=== PATIENT | female | born 1960 | race Caucasian/White ===

== ENCOUNTER → 2016-07-18 | Outpatient (CLI) | payer OTHER ==
[2016-07-18 08:22] LABS: CHLORIDE,CL 111 mmol/L (98-110); SODIUM,NA 142 mmol/L (136-146)
--- NOTE | 2016-07-24 17:36 | MY ---
EXAMINATION: Bilateral digital mammography utilizing CAD. HISTORY: Screening exam. Comparison is made to previous studies dated 07/16/2014. FINDINGS: Bilateral scattered fibroglandular densities. No suspicious calcifications, masses or ar chitectural distortions. No pathologic appearing lymph nodes, no abnormal skin thickening or nippl e inversion. CAD highlighted regions appear normal at this time. IMPRESSION: BI-RADS category I - negative mammogram. Continued screening according to ACR-ACS gu idelines suggested. THE FALSE-NEGATIVE RATE OF MAMMOGRAM IS APPROXIMATELY 10%. MANAGEMENT OF A PALPABLE ABNORMALITY MUST BE BASED UPON CLINICAL GROUNDS. SENSITIVITY FOR DETECTION OF ABNORMALITIES IN DENSE BREASTS IS LOW. NOTE: A letter will be sent to the patient regarding findings. [facility] -- ISSAC Jimenez [phone] - FAX [phone]
== END ==
LOC: MW.MAM 07:41
PROVIDERS: ATTEND Nurse Practitioner Women's Health
DX: Z12.31 Encounter for screening mammogram for malignant neoplasm of breast (principal); I10 Essential (primary) hypertension
CPT/HCPCS: 36415; 80053; 80061; 81001; 84443; G0202

== ENCOUNTER 2017-03-13 14:16 | Emergency (ER) | payer OTHER ==
[2017-03-13] MEDS ORDERED: Pantoprazole 40 MG Vial IVPUSH ONE (14:40)
[2017-03-13] MEDS ORDERED: Sodium Chloride 0.9% 1,000 ML IV ONE (14:40)
[2017-03-13] MEDS ORDERED: Sodium Chloride 0.9% 2.5 ML Syringe FLUSH PRN (14:40)
[2017-03-13] MEDS ORDERED: Sodium Chloride 0.9% 10 ML Syringe FLUSH PRN (14:40)
[2017-03-13] MEDS ORDERED: Metoclopramide 10 MG/2 ML SDV IV ONE (14:41)
--- NOTE | 2017-03-13 14:43 | EDM.PDOC ---
ED HPI GENERAL MEDICAL PROBLEM - General Chief Complaint: Gastrointestinal Problem Stated Complaint: POSSIBLE ULCER/UNABLE TO EAT Time Seen by Provider: 03/13/17 14:37 - History of Present Illness INITIAL COMMENTS - FREE TEXT/NARRATIVE: HISTORY AND PHYSICAL: History of present illness: Patient's a 56-year-old white female history gastric bypass and ulcer disease presents with cervical epigastric discomfort is on diclofenac for her chronic knee pain she also on antihypertensive and antidepressant she denies melena hematochezia denies nausea vomiting chest pain or shortness of breath Review of systems: As per history of present illness and below otherwise all systems reviewed and negative. Past medical history: As per history of present illness and as reviewed below otherwise noncontributory. Surgical history: As per history of present illness and as reviewed below otherwise noncontributory. Social history: No reported history of drug or alcohol abuse. Family history: As per history of present illness and as reviewed below otherwise noncontributory. Physical exam: HEENT: Atraumatic, normocephalic, pupils reactive, negative for conjunctival pallor or scleral icterus, mucous membranes moist, throat clear, neck supple, nontender, trachea midline. Lungs: Clear to auscultation, breath sounds equal bilaterally, chest nontender. Heart: S1S2, regular, negative for clicks, rubs, or JVD. Abdomen: Soft, nondistended, no localized tenderness. Negative for masses or hepatosplenomegaly. Negative for costovertebral tenderness. Pelvis: Stable nontender. Genitourinary: Deferred. Rectal: Deferred. Extremities: Atraumatic, negative for cords or calf pain. Neurovascular unremarkable. Neuro: Awake, alert, oriented. Cranial nerves II through XII unremarkable. Cerebellum unremarkable. Motor and sensory unremarkable throughout. Exam nonfocal. Diagnostics: CBC CMP amylase lipase UA urine drug screen amylase lipase chest x-ray EKG CT abdomen and pelvis with IV contrast Therapeutics: Normal saline 1 L bolus Protonix 80 mg IV bolus followed by a milligram per hour drip Reglan 10 mg IV Impression: #1 epigastric abdominal pain #2 history of gastric bypass #3 history of peptic ulcer disease Definitive disposition and diagnosis as appropriate pending reevaluation and review of above. - Related Data Allergies Allergy/AdvReac Type Severity Reaction Status Date / Time No Known Allergies Allergy Verified 03/13/17 14:35 Home Meds: Home Meds Citalopram [Celexa] 20 mg PO DAILY 03/13/17 [History] Diclofenac Sodium [Voltaren] 75 mg PO BID 03/13/17 [History] Metoprolol Succinate 200 mg PO DAILY 03/13/17 [History] Past Medical History Cardiovascular History: Reports: Hypertension Gastrointestinal History: Reports: Other (See Below) Other Gastrointestinal History: bleeding ulcers Musculoskeletal History: Reports: Other (See Below) Other Musculoskeletal History: knee pain Psychiatric History: Reports: Anxiety - Past Surgical History GI Surgical History: Reports: Bariatric Procedure Social & Family History - Family History Family Medical History: Noncontributory - Tobacco Use Smoking Status *Q: Never Smoker Second Hand Smoke Exposure: No - Alcohol Use Days Per Week of Alcohol Use: 7 Number of Drinks Per Day: 6 Total Drinks Per Week: 42 - Recreational Drug Use Recreational Drug Use: No ED ROS GENERAL - Review of Systems Review Of Systems: ROS reveals no pertinent complaints other than HPI. ED EXAM, GENERAL - Physical Exam Exam: See Below (See dictated) Course - Vital Signs Text/Narrative:: Gen. surgery was consult evaluation of patient in ED and will see patient as outpatient request Protonix B prescribed 40 mg daily bland diet push fluids return as needed as discussed Last Recorded V/S: Last Vital Signs Temp 36.3 C 03/13/17 14:30 Pulse 81 03/13/17 14:30 Resp 22 H 03/13/17 14:30 BP 141/104 H 03/13/17 14:30 Pulse Ox 99 03/13/17 14:30 - Orders/Labs/Meds Orders: Active Orders 24 hr Category Date Time Status EKG Documentation Completion [RC] STAT Care 03/13/17 14:40 Active Pulse Oximetry [RC] ASDIRECTED Care 03/13/17 14:40 Active Abdomen Pelvis w Cont [CT] Stat Exams 03/13/17 14:40 Ordered Chest 1V Frontal [CR] Stat Exams 03/13/17 14:40 Ordered DRUG SCREEN, URINE [URCHEM] Stat Lab 03/13/17 14:40 Uncollected UA W/MICROSCOPIC [URIN] Stat Lab 03/13/17 14:40 Uncollected Pantoprazole [ProTONIX IV] 80 mg Med 03/13/17 14:45 Active Sodium Chloride 0.9% [Normal Saline] 100 ml IV .Continuous Sodium Chloride 0.9% [Saline Flush] Med 03/13/17 14:40 Active 10 ml FLUSH ASDIRECTED PRN Sodium Chloride 0.9% [Saline Flush] Med 03/13/17 14:40 Active 2.5 ml FLUSH ASDIRECTED PRN Saline Lock Insert [OM.PC] Stat Oth 03/13/17 14:40 Ordered Medication Orders Pantoprazole Sodium 80 mg/ (Sodium Chloride) 100 mls @ 10 mls/hr IV .Continuous DARSHAN Sodium Chloride (Saline Flush) 10 ml FLUSH ASDIRECTED PRN PRN Reason: Keep Vein Open Sodium Chloride (Saline Flush) 2.5 ml FLUSH ASDIRECTED PRN PRN Reason: Keep Vein Open Labs: Laboratory Tests 03/13/17 03/13/17 03/13/17 Range/Units 14:35 14:35 14:35 WBC 8.41 (4.0-11.0) K/uL RBC 4.64 (4.30-5.90) M/uL Hgb 12.8 (12.0-16.0) g/dL Hct 38.9 (36.0-46.0) % MCV 83.8 (80.0-98.0) fL MCH 27.6 (27.0-32.0) pg MCHC 32.9 (31.0-37.0) g/dL RDW Std Deviation 52.6 (28.0-62.0) fl RDW Coeff of Agbby 17 H (11.0-15.0) % Plt Count 282 (150-400) K/uL MPV 11.30 (7.40-12.00) fL Neut % (Auto) 61.1 (48.0-80.0) % Lymph % (Auto) 25.7 (16.0-40.0) % [place] % (Auto) 11.7 (0.0-15.0) % Eos % (Auto) 1.1 (0.0-7.0) % Baso % (Auto) 0.4 (0.0-1.5) % Neut # (Auto) 5.2 (1.4-5.7) K/uL Lymph # (Auto) 2.2 (0.6-2.4) K/uL [place] # (Auto) 1.0 H (0.0-0.8) K/uL Eos # (Auto) 0.1 (0.0-0.7) K/uL Baso # (Auto) 0.0 (0.0-0.1) K/uL Nucleated RBC % 0.4 /100WBC Nucleated RBCs # 0 K/uL INR 1.00 (0.86-1.11) Sodium 140 (136-146) mmol/L Potassium 4.2 (3.5-5.1) mmol/L Chloride 108 (98-110) mmol/L Carbon Dioxide 21 (21-31) mmol/L BUN 8 (6.0-23.0) mg/dL Creatinine 0.7 (0.6-1.5) mg/dL Est Cr Clr Drug Dosing 86.23 mL/min Estimated GFR (MDRD) > 60.0 ml/min Glucose 113 H (60-110) mg/dL Calcium 10.1 (8.8-10.8) mg/dL Total Bilirubin 0.4 (0.1-1.5) mg/dL AST 24 (5-40) IU/L ALT 17 (8-54) IU/L Alkaline Phosphatase 80 (40-150) Total Protein 7.4 (6.0-8.0) g/dL Albumin 4.2 (3.5-5.0) g/dL Globulin 3.2 (2.0-3.5) g/dL Albumin/Globulin Ratio 1.3 (1.3-2.8) Amylase 27 (10-90) U/L Lipase 67 (7-80) U/L Meds: Medications Generic Name Dose Route Start Last Admin Trade Name Freq PRN Reason Stop Dose Admin Pantoprazole Sodium 80 mg/ 100 mls @ 10 mls/hr 03/13/17 14:45 Sodium Chloride IV .Continuous DARSHAN Sodium Chloride 10 ml 03/13/17 14:40 Saline Flush FLUSH ASDIRECTED PRN Keep Vein Open Sodium Chloride 2.5 ml 03/13/17 14:40 Saline Flush FLUSH ASDIRECTED PRN Keep Vein Open Discontinued Medications Generic Name Dose Route Start Last Admin Trade Name Freq PRN Reason Stop Dose Admin Sodium Chloride 1,000 mls @ 999 mls/hr 03/13/17 14:40 03/13/17 15:07 Normal Saline IV 03/13/17 15:40 999 mls/hr STAT ONE Administration Metoclopramide HCl 10 mg 03/13/17 14:41 03/13/17 15:06 Reglan IV 03/13/17 14:42 10 mg ONETIME ONE Administration Pantoprazole Sodium 80 mg 03/13/17 14:40 03/13/17 15:01 Protonix Iv IVPUSH 03/13/17 14:41 80 mg .BOLUS ONE Administration Departure - Departure Time of Disposition: 16:13 Disposition: Home, Self-Care 01 Condition: Good Clinical Impression: Abdominal pain - Discharge Information Referrals: PCP,None [Primary Care Provider] - Forms: ED Department Discharge Additional Instructions: The following information is given to patients seen in the emergency department who are being discharged to home. This information is to outline your options for follow-up care. We provide all patients seen in our emergency department with a follow-up referral. The need for follow-up, as well as the timing and circumstances, are variable depending upon the specifics of your emergency department visit. If you don't have a primary care physician on staff, we will provide you with a referral. We always advise you to contact your personal physician following an emergency department visit to inform them of the circumstance of the visit and for follow-up with them and/or the need for any referrals to a consulting specialist. The emergency department will also refer you to a specialist when appropriate. This referral assures that you have the opportunity for followup care with a specialist. All of these measure are taken in an effort to provide you with optimal care, which includes your followup. Under all circumstances we always encourage you to contact your private physician who remains a resource for coordinating your care. When calling for followup care, please make the office aware that this follow-up is from your recent emergency room visit. If for any reason you are refused follow-up, please contact the [facility] emergency department at and asked to speak to the emergency department charge nurse. [facility] Specialty Care - General Surgery Professional Building [address] [place] [address], [address] [place] [address] Protonix as prescribed stop meloxicam call to schedule appointment with general surgery above return as needed as discussed - My Orders Last 24 Hours: My Active Orders 03/13/17 14:40 EKG Documentation Completion [RC] STAT Pulse Oximetry [RC] ASDIRECTED Abdomen Pelvis w Cont [CT] Stat Chest 1V Frontal [CR] Stat DRUG SCREEN, URINE [URCHEM] Stat UA W/MICROSCOPIC [URIN] Stat Sodium Chloride 0.9% [Saline Flush] 10 ml FLUSH ASDIRECTED PRN Sodium Chloride 0.9% [Saline Flush] 2.5 ml FLUSH ASDIRECTED PRN Saline Lock Insert [OM.PC] Stat 03/13/17 14:45 Pantoprazole [ProTONIX IV] 80 mg Sodium Chloride 0.9% [Normal Saline] 100 ml IV .Continuous - Assessment/Plan Last 24 Hours: My Active Orders 03/13/17 14:40 EKG Documentation Completion [RC] STAT Pulse Oximetry [RC] ASDIRECTED Abdomen Pelvis w Cont [CT] Stat Chest 1V Frontal [CR] Stat DRUG SCREEN, URINE [URCHEM] Stat UA W/MICROSCOPIC [URIN] Stat Sodium Chloride 0.9% [Saline Flush] 10 ml FLUSH ASDIRECTED PRN Sodium Chloride 0.9% [Saline Flush] 2.5 ml FLUSH ASDIRECTED PRN Saline Lock Insert [OM.PC] Stat 03/13/17 14:45 Pantoprazole [ProTONIX IV] 80 mg Sodium Chloride 0.9% [Normal Saline] 100 ml IV .Continuous
[2017-03-13] MEDS ORDERED: Pantoprazole 80 MG in Sodium Chloride 0.9% 100 ML IV SCH (14:45)
[2017-03-13 15:09] LABS: CHLORIDE,CL 108 mmol/L (98-110); SODIUM,NA 140 mmol/L (136-146)
--- NOTE | 2017-03-13 19:42 | PCM.CONS ---
H&P History of Present Illness - General Date of Service: 03/13/17 Admit Problem/Dx: Epigastric pain Source of Information: Patient History Limitations: Reports: No Limitations - History of Present Illness Initial Comments - Free Text/Narative: Patient is a 56 yo female who presents with epigastric pain. She has a history of a Kaylin-en-Y gastric bypass. She has a history of a GJ anastamotic ulcer that caused a GI bleed. This was treated with PPI, bland diet and resolved. She denies melena. She is not a smoker. She presents with severe epigastric pain. She takes NSAIDs on a regular basis due to arthritis pain. Upper Abdominal Pain Score (Numeric/FACES): 9 - Related Data Allergies/Adverse Reactions: Allergies Allergy/AdvReac Type Severity Reaction Status Date / Time No Known Allergies Allergy Verified 03/13/17 14:35 Home Medications: Home Meds Citalopram [Celexa] 20 mg PO DAILY 03/13/17 [History] Diclofenac Sodium [Voltaren] 75 mg PO BID 03/13/17 [History] Metoprolol Succinate 200 mg PO DAILY 03/13/17 [History] Past Medical History Cardiovascular History: Reports: Hypertension Gastrointestinal History: Reports: Other (See Below) Other Gastrointestinal History: bleeding ulcers Musculoskeletal History: Reports: Other (See Below) Other Musculoskeletal History: knee pain Psychiatric History: Reports: Anxiety - Past Surgical History GI Surgical History: Reports: Bariatric Procedure Social & Family History - Family History Family Medical History: Noncontributory - Tobacco Use Smoking Status *Q: Never Smoker Second Hand Smoke Exposure: No - Alcohol Use Days Per Week of Alcohol Use: 7 Number of Drinks Per Day: 6 Total Drinks Per Week: 42 - Recreational Drug Use Recreational Drug Use: No H&P Review of Systems - Review of Systems: Review Of Systems: ROS reveals no pertinent complaints other than HPI. Exam - Exam Exam: See Below - Vital Signs Vital Signs: Last Vital Signs Temp 36.3 C 03/13/17 14:30 Pulse 81 03/13/17 14:30 Resp 22 H 03/13/17 14:30 BP 141/104 H 03/13/17 14:30 Pulse Ox 99 03/13/17 14:30 Weight: 122.47 kg - Exam General: Alert, Oriented HEENT: Conjunctiva Clear, Mucosa Moist & [place], Pupils Equal, Pupils Reactive Lungs: Normal Respiratory Effort Cardiovascular: Regular Rhythm GI/Abdominal Exam: Soft, Non-Tender, No Distention Extremities: Normal Inspection - Patient Data Lab Results Last 24 hrs: Laboratory Results - last 24 hr 03/13/17 03/13/17 03/13/17 Range/Units 14:35 14:35 14:35 WBC 8.41 (4.0-11.0) K/uL RBC 4.64 (4.30-5.90) M/uL Hgb 12.8 (12.0-16.0) g/dL Hct 38.9 (36.0-46.0) % MCV 83.8 (80.0-98.0) fL MCH 27.6 (27.0-32.0) pg MCHC 32.9 (31.0-37.0) g/dL RDW Std Deviation 52.6 (28.0-62.0) fl RDW Coeff of Gabby 17 H (11.0-15.0) % Plt Count 282 (150-400) K/uL MPV 11.30 (7.40-12.00) fL Neut % (Auto) 61.1 (48.0-80.0) % Lymph % (Auto) 25.7 (16.0-40.0) % [place] % (Auto) 11.7 (0.0-15.0) % Eos % (Auto) 1.1 (0.0-7.0) % Baso % (Auto) 0.4 (0.0-1.5) % Neut # (Auto) 5.2 (1.4-5.7) K/uL Lymph # (Auto) 2.2 (0.6-2.4) K/uL [place] # (Auto) 1.0 H (0.0-0.8) K/uL Eos # (Auto) 0.1 (0.0-0.7) K/uL Baso # (Auto) 0.0 (0.0-0.1) K/uL Nucleated RBC % 0.4 /100WBC Nucleated RBCs # 0 K/uL INR 1.00 (0.86-1.11) Sodium 140 (136-146) mmol/L Potassium 4.2 (3.5-5.1) mmol/L Chloride 108 (98-110) mmol/L Carbon Dioxide 21 (21-31) mmol/L BUN 8 (6.0-23.0) mg/dL Creatinine 0.7 (0.6-1.5) mg/dL Est Cr Clr Drug Dosing 86.23 mL/min Estimated GFR (MDRD) > 60.0 ml/min Glucose 113 H (60-110) mg/dL Calcium 10.1 (8.8-10.8) mg/dL Total Bilirubin 0.4 (0.1-1.5) mg/dL AST 24 (5-40) IU/L ALT 17 (8-54) IU/L Alkaline Phosphatase 80 (40-150) Total Protein 7.4 (6.0-8.0) g/dL Albumin 4.2 (3.5-5.0) g/dL Globulin 3.2 (2.0-3.5) g/dL Albumin/Globulin Ratio 1.3 (1.3-2.8) Amylase 27 (10-90) U/L Lipase 67 (7-80) U/L Result Diagrams: 03/13/17 14:35 03/13/17 14:35 Consult PN Assessment/Plan Procedures: Procedures ASSAY GLUCOSE BLOOD QUANT (07/08/15) ASSAY OF FERRITIN (05/12/15) ASSAY OF MAGNESIUM (05/12/15) ASSAY THYROID STIM HORMONE (07/18/16) CHEST X-RAY 2VW FRONTAL&LATL (04/30/14) COMP SCREEN MAMMOGRAM ADD-ON (07/16/14) COMPLETE CBC W/AUTO DIFF WBC (08/16/16) COMPREHEN METABOLIC PANEL (08/16/16) EMERGENCY DEPT VISIT (04/30/14) EMERGENCY DEPT VISIT (04/30/14) EVALUATE PT USE OF INHALER (04/30/14) HPV LOW-RISK TYPES (07/13/14) IRON BINDING TEST (05/12/15) LIPID PANEL (07/18/16) PT EVAL MOD COMPLEX 30 MIN (09/05/16) ROUTINE VENIPUNCTURE (08/16/16) THERAPEUTIC EXERCISES (09/11/16) URINALYSIS AUTO W/SCOPE (07/18/16) VITAMIN B-12 (05/12/15) X-RAY EXAM OF KNEE 1 OR 2 (12/08/15) X-RAY EXAM OF KNEE 3 (05/12/15) (1) Abdominal pain SNOMED Code(s): 90988304 Code(s): R10.9 - UNSPECIFIED ABDOMINAL PAIN Problem List Initiated/Reviewed/Updated: Yes Plan: The patient had a CT performed of the abdomen/pelvis. Due to technological issues I was unable to view this and no report was available other than verbal. According to the verbal report the patient has some stranding around the GJ junction with no free fluid, abscess, or evidence of perforation. With treatment in the ER her pain resolved. She most likely has an ulcer at the GJ junction. I would treat her with PPI, sucralfate and bland diet. She can follow up with me in one week to schedule a diagnostic EGD. She should avoid NSAIDs for pain. We discussed the signs and symptoms of a perforation. She should return to the ED immediately if she develops these.
--- NOTE | 2017-03-14 08:30 | CR ---
EXAMINATION: Portable chest radiograph. HISTORY: Shortness of breath. FINDINGS: The trachea is midline. The cardiomediastinal silhouette is within normal limits. No pulmonary infilt rates, effusions or pneumothorax. Osseous structures appear unremarkable. IMPRESSION: No acute cardiopulmonary process.
--- NOTE | 2017-03-14 13:56 | CT ---
CT of the abdomen and pelvis with contrast. HISTORY: Pain TECHNIQUE: Axial CT images were obtained of the abdomen and pelvis following administration of 90 mL of Isovue-370 without complication. Coronal and sagittal reconstructions obtained. FINDINGS: The lung bases are clear, no pleural effusion. The liver, spleen, adrenal glands, and pancreas appear normal. Cholecystectomy. No bulky retroperiton eal lymphadenopathy or abdominal ascites. The kidneys enhance and function symmetrically without evid ence of obstructive uropathy. Postsurgical changes are noted secondary to gastric bypass. There is a trace stranding adjacent to th e gastrojejunal anastomosis. No free air or fluid is within this region. Otherwise the large and small bowel are normal in caliber without evidence of obstruction. The urinar y bladder appears normal. No bulky pelvic lymphadenopathy. The appendix appears normal. Degenerative changes noted within the lower lumbar spine. No suspicious osseous findings. IMPRESSION: 1. Mild stranding adjacent to the gastrojejunostomy anastomosis, this could represent a developing ma rginal ulcer disease. 2. Otherwise no acute findings within the abdomen or pelvis.
== END 2017-03-13 16:51 | disposition home or self-care (01) ==
LOC: MW.ED 14:16
DX: R10.13 Epigastric pain (principal); I10 Essential (primary) hypertension; F41.9 Anxiety disorder, unspecified; Z79.899 Other long term (current) drug therapy; Z98.84 Bariatric surgery status
CPT/HCPCS: 36415; 71010; 74177; 80053; 82150; 83690; 85025; 85610; 93005; 96361; 96374; 96375; 99284; C9113; J2765; J7040; 99282

== ENCOUNTER 2020-10-07 09:38 | Emergency (ER) | payer BC, OTHER ==
[2020-10-07] MEDS ORDERED: Lidocaine/EPINEPHrine/Tetracaine Soln 1 ML TOP ONE (10:20)
[2020-10-07] MEDS ORDERED: Diphtheria,Pertussis(Acell),Tetanus Vaccine 0.5 ML Syringe IM ONE (10:21)
--- NOTE | 2020-10-07 10:43 | EDM.PDOC ---
ED HPI GENERAL MEDICAL PROBLEM - General Chief Complaint: Laceration Stated Complaint: HEAD INJURY Time Seen by Provider: 10/07/20 09:39 Source of Information: Reports: Patient History Limitations: Reports: No Limitations - History of Present Illness INITIAL COMMENTS - FREE TEXT/NARRATIVE: HISTORY AND PHYSICAL: History of present illness: Patient is a 59-year-old female who presents to the emergency department secondary to a laceration on her head. Patient reports that about an hour prior to arrival of the emergency department she was loading some items in her car and was closing the trunk lid and the corner of the trunk came down on her head. Patient reports that she did not lose consciousness and that she is not on any blood thinning medication. Patient states that her tetanus status is out of date and she would need an update. Patient reports no history of diabetes. Patient denies fever, chills, chest pain, shortness of breath, or cough. Denies headache, neck stiff ness, change in vision, syncope, or near syncope. Denies nausea, vomiting, abdominal pain, diarrhea, constipation, or dysuria. Has not noted any blood in urine or stool. Patient has been eating and drinking appropriately. Review of systems: As per history of present illness and below otherwise all systems reviewed and negative. Past medical history: As per history of present illness and as reviewed below otherwise noncontributory. Surgical history: As per history of present illness and as reviewed below otherwise noncontributory. Social history: See social history for further information Family history: As per history of present illness and as reviewed below otherwise noncontributory. Physical exam: General: Patient is alert, oriented, and in no acute distress. Patient sitting comfortably on exam table. Patient's vitals are stable and reviewed by me. Patient mildly anxious on exam. HEENT: Atraumatic, normocephalic, pupils equal and reactive bilaterally, negative for conjunctival pallor or scleral icterus, mucous membranes moist, TMs normal bilaterally, throat clear, neck supple, nontender, trachea midline. No drooling or trismus noted. No meningeal signs. No hot potato voice noted. 4 cm laceration to the right anterior lateral scalp above the hairline with hemostasis. Lungs: Clear to auscultation, breath sounds equal bilaterally, chest nontender. Heart: S1S2, regular rate and rhythm without overt murmur Abdomen: Soft, nondistended, nontender. Negative for masses or hepatosplenomegaly. Negative for costovertebral tenderness. Pelvis: Stable nontender. Genitourinary: Deferred. Rectal: Deferred. Skin: Intact, warm, dry. No lesions or rashes noted. Extremities: Atraumatic, negative for cords or calf pain. Neurovascular unremarkable. Neuro: Awake, alert, oriented. Cranial nerves II through XII unremarkable. Cerebellum unremarkable. Motor and sensory unremarkable throughout. Exam nonfocal. Notes: Signs and symptoms that would prompt return to the emergency department throughly discussed with patient. Discussed with patient following up with her primary care provider. Voices understanding and is agreeable to plan of care. Denies any further quest ions or concerns at this time. Diagnostics: None Therapeutics: Topical let, candice Prescription: None Impression: Scalp laceration Plan: 1. Keep the area clean and dry. Continue to monitor for signs of infection as discussed. Orwell to be removed in 7-10 days. 2. Tylenol and/or ibuprofen as directed and as needed for pain management and discomfort. 3. Please follow-up with your primary care provider as discussed. Return to the ED as needed and as discussed. Definitive disposition and diagnosis as appropriate pending reevaluation and review of above. right head Pain Score (Numeric/FACES): 7 - Related Data Allergies Allergy/AdvReac Type Severity Reaction Status Date / Time No Known Allergies Allergy Verified 04/07/18 17:08 Home Meds: Home Meds Citalopram [Celexa] 20 mg PO DAILY 03/13/17 [History] Metoprolol Succinate 200 mg PO DAILY 03/13/17 [History] Diclofenac Sodium [Voltaren] 1 applic TOP BID 03/31/18 [History] Acetaminophen/oxyCODONE [Percocet 325-5 MG] 1 - 2 tab PO Q4H PRN #60 tablet 04/08/18 [Rx] Aspirin [Ecotrin EC] 325 mg PO BID #60 tab.ec 04/08/18 [Rx] Celecoxib [CeleBREX] 200 mg PO DAILY #30 cap 04/08/18 [Rx] Docusate Sodium [Colace] 100 mg PO BID #60 cap 04/08/18 [Rx] polyethylene glycoL 3350 [MiraLAX] 17 gm PO DAILY #30 packet 04/08/18 [Rx] Past Medical History HEENT History: Reports: Other (See Below) Other HEENT History: reading glasses Cardiovascular History: Reports: Hypertension Other Cardiovascular History: murmur in the past Gastrointestinal History: Reports: Other (See Below) Other Gastrointestinal History: bleeding ulcers Genitourinary History: Reports: None Musculoskeletal History: Reports: Other (See Below) Other Musculoskeletal History: knee pain Neurological History: Reports: None Psychiatric History: Reports: Anxiety Endocrine/Metabolic History: Reports: Obesity/BMI 30+ Hematologic History: Reports: Blood Transfusion(s) Other Hematologic History: blood transfusion due to GI bleed Dermatologic History: Reports: None - Past Surgical History Head Surgeries/Procedures: Reports: None HEENT Surgical History: Reports: Tonsillectomy GI Surgical History: Reports: Bariatric Procedure Other GI Surgeries/Procedures: laparoscopy for SBO Other Musculoskeletal Surgeries/Procedures:: reconstructive rt foot surgery x2 Social & Family History - Family History Family Medical History: No Pertinent Family History - Tobacco Use Tobacco Use Status *Q: Never Tobacco User - Alcohol Use Number of Drinks Per Day: 3 - Recreational Drug Use Recreational Drug Use: Yes Recreational Drug Type: Reports: Marijuana/Hashish Recreational Drug Use Frequency: Daily ED ROS GENERAL - Review of Systems Review Of Systems: Comprehensive ROS is negative, except as noted in HPI. ED EXAM, SKIN/RASH Exam: See Below (see dictation) ED SKIN PROCEDURES - Laceration/Wound Repair Right Anterior Lateral Proximal Head Appearance: Subcutaneous, Linear, Clean Distal NVT: Neuro & Vascular Intact Anesthetic Type: Topical Skin Prep: Chlorhexidine (Hibiciens), Saline Exploration/Debridement/Repair: Wound Explored, In a Bloodless Field, Explored to Base, No Foreign Material Found Closed with: Candice Lac/Wound length In cm: 4 # of Sutures: 5 Drain Placement: No Sterile Dressing Applied: Nurse Tetanus Status Addressed: Yes Complications: No Course - Vital Signs Last Recorded V/S: Last Vital Signs Temp 97.3 F 10/07/20 10:11 Pulse 70 10/07/20 10:11 Resp BP 145/95 H 10/07/20 10:11 Pulse Ox 97 10/07/20 10:11 - Orders/Labs/Meds Orders: Active Orders 24 hr Category Date Time Status Vaccines to be Administered [RC] PER UNIT ROUTINE Care 10/07/20 10:21 Active Meds: Medications Discontinued Medications Generic Name Dose Route Start Last Admin Trade Name Freq PRN Reason Stop Dose Admin Diphtheria/Tetanus/Acell Pertussis 0.5 ml 10/07/20 10:21 10/07/20 10:48 Diphtheria,Pertussis(Acell),Tetanus Vaccine 0.5 Ml Syringe IM 10/07/20 10:22 0.5 ml .ONCE ONE Administration Lidocaine/Tetracaine 2 ml 10/07/20 10:20 10/07/20 10:48 Lidocaine/Epinephrine/Tetracaine Soln 1 Ml TOP 10/07/20 10:21 2 ml ONETIME ONE Administration Departure - Departure Time of Disposition: 11:18 Disposition: Home, Self-Care 01 Clinical Impression: Laceration of scalp Qualifiers: Encounter type: initial encounter Qualified Code(s): S01.01XA - Laceration without foreign body of scalp, initial encounter - Discharge Information Referrals: Ninfa Lujan, [employer] [Primary Care Provider] - Forms: ED Department Discharge Additional Instructions: The following information is given to patients seen in the emergency department who are being discharged to home. This information is to outline your options for follow-up care. We provide all patients seen in our emergency department with a follow-up referral. The need for follow-up, as well as the timing and circumstances, are variable depending upon the specifics of your emergency department visit. If you don't have a primary care physician on staff, we will provide you with a referral. We always advise you to contact your personal physician following an emergency department visit to inform them of the circumstance of the visit and for follow-up with them and/or the need for any referrals to a consulting specialist. The emergency department will also refer you to a specialist when appropriate. This referral assures that you have the opportunity for follow-up care with a specialist. All of these measure are taken in an effort to provide you with optimal care, which includes your follow-up. Under all circumstances we always encourage you to contact your private physician who remains a resource for coordinating your care. When calling for follow-up care, please make the office aware that this follow-up is from your recent emergency room visit. If for any reason you are refused follow-up, please contact the [facility] Emergency Department at and asked to speak to the emergency department charge nurse. [facility] [address] [place], [place] [address], [place] [address] [facility] [address] [place] [address] 1. Keep the area clean and dry. Continue to monitor for signs of infection as discussed. Candice to be removed in 7-10 days. 2. Tylenol and/or ibuprofen as directed and as needed for pain management and discomfort. 3. Please follow-up with your primary care provider as discussed. Return to the ED as needed and as discussed. Sepsis Event Note (ED) - Evaluation Sepsis Screening Result: No Definite Risk - Focused Exam Vital Signs: Vital Signs Temp Pulse BP Pulse Ox 10/07/20 10:11 97.3 F 70 145/95 H 97 - My Orders Last 24 Hours: My Active Orders 10/07/20 10:21 Vaccines to be Administered [RC] PER UNIT ROUTINE - Assessment/Plan Last 24 Hours: My Active Orders 10/07/20 10:21 Vaccines to be Administered [RC] PER UNIT ROUTINE
== END 2020-10-07 11:49 | disposition home or self-care (01) ==
LOC: MW.ED 09:38
DX: S01.01XA Laceration without foreign body of scalp, initial encounter (principal); I10 Essential (primary) hypertension; E66.9 Obesity, unspecified; Z68.41 Body mass index [BMI] 40.0-44.9, adult; Z79.82 Long term (current) use of aspirin; Z79.899 Other long term (current) drug therapy; Z23 Encounter for immunization; X58.XXXA Exposure to other specified factors, initial encounter
CPT/HCPCS: 12002; 90471; 90715; 99282-25

== ENCOUNTER 2020-10-15 08:08 | Emergency (ER) | payer BC | END 2020-10-15 08:15 | disposition left against medical advice (07) | LOC: MW.ED 08:08 | DX: Z53.21 Procedure and treatment not carried out due to patient leaving prior to being seen by health care provider (principal) ==

== ENCOUNTER 2023-07-26 06:33 | Day surgery (SDC) | payer BC ==
[2023-07-26] MEDS: Lactated Ringers 1,000 ML IV SCH (07:18)
[2023-07-26] MEDS ORDERED: Bupivacaine 0.5% 10 ML SDV ONE (07:19)
[2023-07-26] MEDS ORDERED: Lidocaine 1% 20 ML MDV ONE (07:19)
[2023-07-26] MEDS ORDERED: Propofol 200 MG/20 ML SDV ONE (07:44)
[2023-07-26] MEDS ORDERED: fentaNYL 250 MCG/5 ML SDV ONE (07:44)
[2023-07-26] MEDS ORDERED: HYDROmorphone 1 MG/ML Syringe IVPUSH PRN (08:00)
[2023-07-26] MEDS ORDERED: Morphine 2 MG/ML SYRINGE IVPUSH PRN (08:00)
[2023-07-26] MEDS ORDERED: droPERidol 5 MG/2 ML SDV IVPUSH PRN (08:00)
[2023-07-26] MEDS ORDERED: Metoclopramide 10 MG/2 ML SDV IVPUSH PRN (08:00)
[2023-07-26] MEDS ORDERED: Albuterol 0.083% 2.5 MG/3 ML Neb Soln NEB PRN (08:00)
[2023-07-26] MEDS ORDERED: Ondansetron 4 MG/2 ML SDV IVPUSH PRN (08:00)
[2023-07-26] MEDS ORDERED: Naloxone 0.4 MG/ML SDV IVPUSH PRN (08:00)
[2023-07-26] MEDS ORDERED: ePHEDrine 50 MG/ML SDV ONE (08:15)
[2023-07-26] MEDS: fentaNYL 50 MCG/ML SDV IVPUSH PRN (08:55)
[2023-07-26] MEDS ORDERED: Acetaminophen/HYDROcodone 325-5 MG Tab PO PRN ×2 (09:03→09:09)
[2023-07-26] MEDS ORDERED: Lactated Ringers 1,000 ML IV SCH (09:15)
[2023-07-26] MEDS ORDERED: Ondansetron 4 MG/2 ML SDV ONE (13:50)
== END 2023-07-26 09:45 | disposition home or self-care (01) ==
LOC: MW.SDS 06:33
PROVIDERS: ATTEND Surgery
DX: L72.0 Epidermal cyst (principal); D64.9 Anemia, unspecified; L98.9 Disorder of the skin and subcutaneous tissue, unspecified; I10 Essential (primary) hypertension; E55.9 Vitamin D deficiency, unspecified; L08.9 Local infection of the skin and subcutaneous tissue, unspecified; K28.4 Chronic or unspecified gastrojejunal ulcer with hemorrhage; E66.01 Morbid (severe) obesity due to excess calories; I47.29 Other ventricular tachycardia; R22.30 Localized swelling, mass and lump, unspecified upper limb; M17.0 Bilateral primary osteoarthritis of knee; M17.12 Unilateral primary osteoarthritis, left knee; Z79.899 Other long term (current) drug therapy; Z87.891 Personal history of nicotine dependence; Z68.34 Body mass index [BMI] 34.0-34.9, adult
CPT/HCPCS: 11402; 12032; J0665; J2405; J2704; J3010; J7120; 00400; J3490

== ENCOUNTER 2024-09-18 12:44 | Emergency (ER) | payer BC | END 2024-09-18 14:09 | disposition home or self-care (01) | LOC: MW.ED 12:44 | DX: S89.91XA Unspecified injury of right lower leg, initial encounter (principal); Z96.651 Presence of right artificial knee joint; E66.9 Obesity, unspecified; I10 Essential (primary) hypertension; Z79.899 Other long term (current) drug therapy; Z68.38 Body mass index [BMI] 38.0-38.9, adult; W50.0XXA Accidental hit or strike by another person, initial encounter; W18.30XA Fall on same level, unspecified, initial encounter; Y99.0 Civilian activity done for income or pay | CPT/HCPCS: 73560-26-RT; 73560-RT; 99282; 99283 ==